=== PATIENT | male | born 1980 | race Two or more races ===

== ENCOUNTER 2020-10-20 16:00 | Emergency (ER) | payer BC ==
[2020-10-20] MEDS ORDERED: ONDA4TAB5 PO (17:35)
[2020-10-20] MEDS ORDERED: HYDR-3972 PO (17:35)
== END 2020-10-20 18:00 | disposition home or self-care (01) ==
LOC: EDBD → ER 16:00
DX: Z75.3 Unavailability and inaccessibility of health-care facilities (principal)